=== PATIENT | male | born 1995 | race Caucasian/White ===

== ENCOUNTER 2019-03-11 11:58 | Emergency (ER) | payer BC ==
[~2019-03-11] VITALS: Ht 188 cm; Wt 181.8 kg
[2019-03-11 12:09] VITALS: Ht 188 cm; Wt 181.8 kg
[2019-03-11 12:43] LABS: BASOPHILS 0.2 % (0-2); EOSINOPHILS 0.5 % (0-7); HEMATOCRIT 40.8 % (42.0-54.0); IMMATURE GRANULOCYTES 0.3 % (0-5); LYMPHOCYTES 17.9 % (15-50); MCH 28.5 pg (26.0-34.0); MCHC 34.3 g/dL (31.0-37.0); MCV 82.9 fL (80.0-100.0); MEAN PLATELET VOLUME 10.3 fL (7.4-10.4); MONOCYTES 9.8 % (2-11); NEUTROPHILS 71.3 % (40-80); PLATELET COUNT 255 10x3/uL (130-400); RBC 4.92 10x6/uL (4.20-6.10); RDW 13.7 % (11.5-14.5); WBC 13.1 10x3/uL (4.8-10.8)
[2019-03-11 13:09] LABS: ALBUMIN 3.3 g/dL (3.4-5.0); ALKALINE PHOSPHATASE 66 U/L (46-116); ALT (SGPT) 53 U/L (10-68); BILIRUBIN - TOTAL 0.29 mg/dL (0.2-1.3); CALC OSMOLALITY 279 mosm/kg (275-300); CARBON DIOXIDE 26.6 mmol/L (21.0-32.0); CHLORIDE - SERUM 104 mmol/L (98-107); GLUCOSE 100 mg/dL (74-106); POTASSIUM - SERUM 4.2 mmol/L (3.5-5.1); PROTEIN - SERUM 7.4 g/dL (6.4-8.2); SODIUM 140 mmol/L (136-145); UREA NITROGEN 15 mg/dL (7-18); eGFR NON AFRICAN AMERICAN > 90 mL/min (90-120)
[2019-03-11 13:23] LABS: CREATINE KINASE 192 UL (21-232); TROPONIN-I < 0.017 ng/mL (0.000-0.060)
[2019-03-11] MEDS ORDERED: AUGMENTIN 875-11 TAB PO (14:08)
[2019-03-11] MEDS ORDERED: MEDROL DOSE PACK4 MG PO (14:08)
[2019-03-11 14:37] VITALS: BP 135/74
== END 2019-03-11 14:42 | disposition home or self-care (01) ==
LOC: D.ER 11:58
PROVIDERS: Family Medicine
DX: J06.9 Acute upper respiratory infection, unspecified (principal); R07.81 Pleurodynia